=== PATIENT | male | born 1965 | race Caucasian/White ===

== ENCOUNTER 2018-08-20 14:59 | Emergency (ER) | payer MEDICARE, BC ==
[2018-08-20] MEDS ORDERED: Lidocaine 1% with EPINEPHrine 1:100,000 50 ML MDV SUBCUT STA (15:33)
--- NOTE | 2018-08-20 15:38 | EDM.PDOC ---
ED HPI GENERAL MEDICAL PROBLEM - General Chief Complaint: Laceration Stated Complaint: FALL, EPILEPSY Time Seen by Provider: 08/20/18 15:30 Source of Information: Reports: Patient, RN Notes Reviewed History Limitations: Reports: No Limitations - History of Present Illness INITIAL COMMENTS - FREE TEXT/NARRATIVE: 52-year-old gentleman presents emergency department today with complaint of laceration to the back of his scalp, he has a known history of epilepsy states he had a seizure at home not unusual for him. He did fall he ended up hitting a cabinet in the kitchen causing a laceration back of his scalp Head Pain Score (Numeric/FACES): 1 - Related Data Allergies Allergy/AdvReac Type Severity Reaction Status Date / Time No Known Allergies Allergy Verified 08/20/18 15:21 Home Meds: Home Meds Metoprolol Succinate [Toprol XL] 20 mg PO DAILY 08/20/18 [History] Phenytoin Sodium Extended [Dilantin] 100 mg PO TID 08/20/18 [History] lamoTRIgine [Lamictal] 150 mg PO QID 08/20/18 [History] levETIRAcetam [Keppra] 150 mg PO QID 08/20/18 [History] Past Medical History HEENT History: Reports: None Cardiovascular History: Reports: Hypertension Neurological History: Reports: Seizure Endocrine/Metabolic History: Reports: None - Infectious Disease History Infectious Disease History: Reports: Chicken Pox - Past Surgical History Head Surgeries/Procedures: Reports: None HEENT Surgical History: Reports: Adenoidectomy, LASIK Cardiovascular Surgical History: Reports: None Endocrine Surgical History: Reports: Thyroidectomy Neurological Surgical History: Reports: None Dermatological Surgical History: Reports: None Social & Family History - Tobacco Use Smoking Status *Q: Never Smoker Second Hand Smoke Exposure: No - Caffeine Use Caffeine Use: Reports: Coffee - Recreational Drug Use Recreational Drug Use: No ED ROS GENERAL - Review of Systems Review Of Systems: See Below Constitutional: Reports: No Symptoms Skin: Reports: Wound Neurological: Reports: Seizure ED EXAM, SKIN/RASH Exam: See Below Exam Limited By: No Limitations General Appearance: Alert, WD/WN, No Apparent Distress Front/Back Body Diagram: 1 - 3 cm laceration completely through the dermis ED SKIN PROCEDURES - Laceration/Wound Repair Head Lac/Wound length In cm: 3 Appearance: Irregular, Clean Distal NVT: Neuro & Vascular Intact, No Tendon Injury Anesthetic Type: Local Local Anesthesia - Lidocaine (Xylocaine): 1% with EPI Local Anesthetic Volume: 2cc Skin Prep: Saline Saline Irrigation (cc's): 60 Exploration/Debridement/Repair: Wound Explored, In a Bloodless Field, Explored to Base Closed with: [place] # of Sutures: 7 Sterile Dressing Applied: Nurse Tetanus Status Addressed: Yes Complications: No Course - Vital Signs Last Recorded V/S: Last Vital Signs Temp 96.4 F 08/20/18 15:23 Pulse 86 08/20/18 15:23 Resp 18 08/20/18 15:23 BP 146/87 H 08/20/18 15:23 Pulse Ox 94 L 08/20/18 15:23 - Orders/Labs/Meds Meds: Medications Discontinued Medications Generic Name Dose Route Start Last Admin Trade Name Joanne PRN Reason Stop Dose Admin Lidocaine/Epinephrine 20 ml 08/20/18 15:33 08/20/18 15:40 Xylocaine 1% With Epinephrine 1:100,000 SUBCUT 08/20/18 15:34 20 ml NOW STA Administration Departure - Departure Time of Disposition: 15:47 Disposition: Home, Self-Care 01 Condition: Fair Clinical Impression: Laceration of head Qualifiers: Encounter type: initial encounter Location of open wound of head: scalp Foreign body presence: without foreign body Qualified Code(s): S01.01XA - Laceration without foreign body of scalp, initial encounter - Discharge Information Referrals: PCP,None [Primary Care Provider] - Forms: ED Department Discharge Additional Instructions: Stated removal in 10 days follow-up with primary care for suture removal or return to the emergency Department follow wound care instruction sheet, - Assessment/Plan Plan: Assessment Acuity = acute Site and laterality = he started going to be states he 3 cm laceration scalp occipital region Etiology = secondary to fall with seizure Manifestations = [none Location of injury = Home Lab values = none Plan Staple removal in 10 days follow-up primary care return to the emergency department follow wound care instruction sheet This note was dictated using [employer] recognition software please call with any questions on syntax or grammar.
== END 2018-08-20 15:56 | disposition home or self-care (01) ==
LOC: JP.ED 14:59
DX: G40.909 Epilepsy, unspecified, not intractable, without status epilepticus (principal); S01.01XA Laceration without foreign body of scalp, initial encounter; I10 Essential (primary) hypertension; Z98.890 Other specified postprocedural states; Z79.899 Other long term (current) drug therapy; W01.198A Fall on same level from slipping, tripping and stumbling with subsequent striking against other object, initial encounter
CPT/HCPCS: 12002; 99282

== ENCOUNTER 2018-09-03 16:19 | Emergency (ER) | payer MEDICARE, BC ==
--- NOTE | 2018-09-03 17:49 | EDM.PDOC ---
ED HPI GENERAL MEDICAL PROBLEM - General Chief Complaint: Wound Recheck Stated Complaint: NEEDS JACQUELYN TO BE REMOVED Time Seen by Provider: 09/03/18 17:35 Source of Information: Reports: Patient History Limitations: Reports: No Limitations - History of Present Illness INITIAL COMMENTS - FREE TEXT/NARRATIVE: 52-year-old male who received 7 jacquelyn in his scalp 2 weeks ago after having a seizure. The wound is healed nicely without complication, he is here for staple removal. - Related Data Allergies Allergy/AdvReac Type Severity Reaction Status Date / Time No Known Allergies Allergy Verified 08/20/18 15:21 Home Meds: Home Meds Metoprolol Succinate [Toprol XL] 20 mg PO DAILY 08/20/18 [History] Phenytoin Sodium Extended [Dilantin] 100 mg PO TID 08/20/18 [History] lamoTRIgine [Lamictal] 150 mg PO QID 08/20/18 [History] levETIRAcetam [Keppra] 150 mg PO QID 08/20/18 [History] Past Medical History HEENT History: Reports: None Cardiovascular History: Reports: Hypertension Neurological History: Reports: Seizure Endocrine/Metabolic History: Reports: None - Infectious Disease History Infectious Disease History: Reports: Chicken Pox - Past Surgical History Head Surgeries/Procedures: Reports: None HEENT Surgical History: Reports: Adenoidectomy, LASIK Cardiovascular Surgical History: Reports: None Endocrine Surgical History: Reports: Thyroidectomy Neurological Surgical History: Reports: None Dermatological Surgical History: Reports: None Social & Family History - Caffeine Use Caffeine Use: Reports: Coffee ED ROS GENERAL - Review of Systems Review Of Systems: See Below Constitutional: Denies: Fever Respiratory: Reports: No Symptoms Neurological: Denies: Headache ED EXAM, SKIN/RASH Exam: See Below Exam Limited By: No Limitations General Appearance: Alert, No Apparent Distress Head: Other (Has a longitudinal laceration which is well-healed on the occiput of the scalp. 7 jacqu[address] are still in place. No evidence of infection.) Course - Vital Signs Last Recorded V/S: Last Vital Signs Temp 96.5 F 09/03/18 18:04 Pulse 85 09/03/18 18:04 Resp 16 09/03/18 18:04 BP 158/103 H 09/03/18 18:04 Pulse Ox 99 09/03/18 18:04 - Re-Assessments/Exams Free Text/Narrative Re-Assessment/Exam: 09/03/18 17:48 Jacquelyn removed with a staple remover tool. No complications. Departure - Departure Time of Disposition: 18:05 Disposition: Home, Self-Care 01 Condition: Good Clinical Impression: Removal of jacquelyn - Discharge Information Instructions: Wound Care, Adult Referrals: PCP,None [Primary Care Provider] - Forms: ED Department Discharge Care Plan Goals: Keep wound clean while healing. Return if concerns of infection or not healing satisfactorily.
== END 2018-09-03 18:06 | disposition home or self-care (01) ==
LOC: JP.ED 16:19
DX: S01.01XD Laceration without foreign body of scalp, subsequent encounter (principal); Z79.899 Other long term (current) drug therapy; W01.198D Fall on same level from slipping, tripping and stumbling with subsequent striking against other object, subsequent encounter; I10 Essential (primary) hypertension
CPT/HCPCS: 99281

== ENCOUNTER 2022-07-28 18:22 | Emergency (ER) | payer MEDICARE, BC ==
[2022-07-28] MEDS ORDERED: Ondansetron 4 MG/2 ML SDV IVPUSH ONE (18:48)
[2022-07-28] MEDS ORDERED: Sodium Chloride 0.9% 10 ML Syringe FLUSH PRN (18:48)
[2022-07-28 19:09] LABS: BASOPHILS ABSOLUTE AUTO 0.04 K/uL (0.00-0.10); BASOPHILS PERCENT AUTO 0.3 % (0.1-1.3); HEMATOCRIT 40.9 % (38.4-49.7); HEMOGLOBIN 14.1 g/dL (12.9-16.9); IMMATURE GRAN ABSOLUTE AUTO 0.05 K/uL (0.00-0.23); IMMATURE GRAN PERCENT AUTO 0.4 % (0.0-0.7); LYMPHOCYTES ABSOLUTE AUTO 0.98 K/uL (0.8-3.3); LYMPHOCYTES PERCENT AUTO 7.3 % (11.4-47.7); MEAN CORPUSCULAR HEMOGLOBIN 31.5 pg (31.6-35.5); MEAN CORPUSCULAR HGB CONC 34.5 g/dL (31.6-35.5); MEAN CORPUSCULAR VOLUME 91.5 fL (81.4-99.0); MONOCYTES PERCENT AUTO 7.5 % (3.3-12.6); NEUTROPHILS ABSOLUTE AUTO 11.34 K/uL (1.0-7.6); NEUTROPHILS PERCENT AUTO 84.5 % (40.0-78.1); PLATELET COUNT,PLT 300 K/uL (130-375); RED BLOOD CELL COUNT 4.47 M/uL (4.14-5.76); WHITE BLOOD CELL COUNT,WBC 13.4 K/uL (3.2-11.0)
[2022-07-28 19:30] LABS: CALCIUM 8.8 mg/dL (8.5-10.1); DILANTIN,PHENYTOIN 20.4 ug/mL (10.0-20.0); EST CRCL DRUG DOSING (CG) 84.67 mL/min; POTASSIUM,K 4.2 mmol/L (3.6-5.2)
[2022-07-28 19:34] LABS: ANION GAP 13.2 mmol/L (5.0-14.0)
[2022-07-28] MEDS ORDERED: Acetaminophen 325 MG Tab PO ONE (22:31)
[2022-07-29] MEDS ORDERED: Acetaminophen 325 MG Tab PO ONE (09:46)
[2022-07-29] MEDS ORDERED: HYDROmorphone 0.5 MG/0.5 ML Syringe IVPUSH ONE ×2 (10:58→11:02)
== END 2022-07-29 11:39 | disposition home or self-care (01) ==
LOC: JP.ED 18:22
DX: G40.909 Epilepsy, unspecified, not intractable, without status epilepticus (principal); R89.2 Abnormal level of other drugs, medicaments and biological substances in specimens from other organs, systems and tissues; I10 Essential (primary) hypertension; Z79.899 Other long term (current) drug therapy
CPT/HCPCS: 36415; 70450; 80048; 80175; 80177; 80185; 83605; 83735; 85025; 96365; 96375; 99284; A9270; J1165; J2405; J3490

== ENCOUNTER 2022-08-02 16:31 | Emergency (ER) | payer MEDICARE, BC ==
[2022-08-02] MEDS ORDERED: Fosphenytoin 1,000 MG.PE in Sodium Chloride 0.9% 50 ML IV ONE (18:53)
== END 2022-08-02 23:15 | disposition home or self-care (01) ==
LOC: JP.ED 16:31
DX: G40.909 Epilepsy, unspecified, not intractable, without status epilepticus (principal); I10 Essential (primary) hypertension; R89.2 Abnormal level of other drugs, medicaments and biological substances in specimens from other organs, systems and tissues; Z76.89 Persons encountering health services in other specified circumstances; Z79.899 Other long term (current) drug therapy
CPT/HCPCS: 36415; 80185; 96365; 99284; J3490; Q2009